=== PATIENT | female | born 1995 | race Caucasian/White ===

== ENCOUNTER 2018-07-05 14:31 | Emergency (ER) | payer SELFPAY ==
[~2018-07-05] VITALS: Ht 160 cm; Wt 44.9 kg
[~2018-07-05 14:31] MED LIST: PHEN-318 PO; SULF1TAB24 PO
[2018-07-05 14:49] VITALS: BP 120/58
--- NOTE | 2018-07-05 15:03 | PHYS DOC ---
Past Medical History Past Medical History: No Pertinent History Additional Past Medical Histor: scoliosis Past Surgical History: No Surgical History Alcohol Use: None Drug Use: None Adult General Chief Complaint Chief Complaint: BREAST PROBLEM HPI HPI 23-year-old female presents to ER with complaints of small sores on bilateral breasts with irritation around her areola. She reports she started using a new body wash a few days ago and following use of the new soap she had sores develop around her breasts. Patient denies purulent drainage from areola, fever , palpable mass on bilateral breasts, or redness streaking from her breast. Patient reports she has using triple antibiotic ointment with Band-Aids covering the small scabbed areas. Review of Systems Review of Systems Constitutional: Denies fever or chills [] Eyes: Denies redness, or eye pain [] HENT: Denies nasal congestion or sore throat/throat swelling Respiratory: Denies cough or shortness of breath [] Cardiovascular: Denies CP/tightness GI: Denies abdominal pain, nausea, vomiting, bloody stools or diarrhea [] : Denies dysuria or hematuria [] Musculoskeletal: Denies back/neck pain or joint pain [] Integument: Reports small scabbed sores on bilat. breasts- denies drainage from areolas or redness/streaking Neurologic: Denies headache, focal weakness or sensory changes [] All other systems were reviewed and found to be within normal limits, except as documented in this note. Allergies Allergies Allergies Coded Allergies Type Severity Reaction Last Updated Verified No Known Drug Allergies 07/05/18 No Physical Exam Physical Exam Constitutional: Well developed, well nourished, no acute distress, non-toxic appearance. [] HENT: Normocephalic, atraumatic, oropharynx moist, no oral exudates, nose normal. [] Eyes: Pupils equal, conjunctiva normal, no discharge. [] Neck: Normal range of motion, no tenderness, supple, no stridor. [] Cardiovascular: Heart rate regular Lungs & Thorax: Resp. equal/nonlabored. Pt has small scabbed pinpoint sores on bilat. breasts at edge of areola with rt side sore is on rt lateral side of areola and on lt the sore is lt lateral side - no palp. abscess/mass or erythema around sores. No tenderness on palp. of sores- no drainage on palp. of bilat. areolas. Bilat. breasts soft. Pt has small site on rt lateral breast where adhesive from bandaid has caused skin redness- no swelling/tenderness at this site Skin: Warm, dry, no erythema. No other areas with rash/sores on exam Extremities: No tenderness, no cyanosis, no clubbing, ROM intact, no edema. [] Neurologic: Alert and oriented X 3, normal motor function, normal sensory function, no focal deficits noted. [] Psychologic: Affect normal, judgement normal, mood normal. [] Current Patient Data Vital Signs Vital Signs Date Time Temp Pulse Resp B/P (MAP) Pulse Ox O2 Delivery O2 Flow Rate FiO2 07/05/18 14:49 98.7 72 16 120/58 (78) 98 Room Air 98.7 EKG EKG [] Radiology/Procedures Radiology/Procedures [] Course & Med Decision Making Course & Med Decision Making Patient was evaluated in the ER for complaints of small sore on bilateral breasts-denying fever or chills. Patient denies any other rash. Patient reports she had started new body soap to in-depth conversation had with patient regarding contact dermatitis and avoiding new soap. Patient advised on use of [id number] hydrocortisone or triple anabolic ointment as directed on container. Patient had no drainage or erythema at sore sites on bilateral breast. Education provided on signs and symptoms to return to ER for an discharge instructions were discussed. Nontoxic in appearance and in no distress. Will provide clinic and physician referral information for follow-up purposes as patient currently does not have primary doctor to follow-up with. Miguelito Disclaimer Miguelito Disclaimer This electronic medical record was generated, in whole or in part, using a voice recognition dictation system. Departure Departure Impression: Primary Impression: Contact dermatitis Disposition: HOME, SELF-CARE Condition: STABLE Referrals: NO PCP (PCP) Patient Instructions: Contact Dermatitis Additional Instructions: You can try jqip-ble-[id number] hydrocortisone cream as directed on container. Avoid Band-Aids as your skin was sensitive to the adhesive. Avoid the new body wash that you started using this week.. Monitor skin for worsening symptoms and with concerns follow-up with primary care physician in next 2-3 days. CLAUS GILBERT APRN Jul 05, 2018 15:03
== END 2018-07-05 15:11 | disposition home or self-care (01) ==
LOC: ER 14:31
DX: L25.9 Unspecified contact dermatitis, unspecified cause (principal)
CPT/HCPCS: 99281

== ENCOUNTER 2020-07-20 22:49 | Observation (INO) | payer MEDICAID ==
[2020-07-20] MEDS ORDERED: IV RINGERS,LACTATED 1000ML 1,000 ML IV SCH (23:00)
[2020-07-20] MEDS ORDERED: ACETAMINOPHEN 325 MG TABLET. PO PRN (23:00)
[2020-07-20 23:21] LABS: CLARITY,URINE CLOUDY; COLOR,URINE RED
[2020-07-20 23:31] LABS: BACTERIA,URINE FEW /HPF (0-FEW); RBC,URINE TNTC /HPF (0-2)
[2020-07-20 23:40] LABS: BARBITURATES NEG (NEG); BENZODIAZEPINES NEG (NEG); CANNABINOIDS NEG (NEG); COCAINE NEG (NEG); METHADONE NEG (NEG); OPIATES NEG (NEG); PHENCYCLIDINE NEG (NEG)
[2020-07-20 23:41] LABS: AMPHETAMINE/METHAMPHETAMINE NEG (NEG)
[2020-07-21] MEDS: IV RINGERS,LACTATED 1000ML 1,000 ML IV SCH ×2 (02:04→06:19)
[2020-07-21] MEDS ORDERED: BETAMET ACET&NA PHOS 30 MG/5 ML VIAL. IM SCH (03:30)
[2020-07-21] MEDS ORDERED: ONDANSETRON PF 4 MG/2 ML VIAL. IVP PRN (04:15)
--- NOTE | 2020-07-21 08:39 | PDOC1 ---
[facility] H&P Date of Admission: Date of Admission: Jul 20, 2020 at 22:49 History of Present Illness: EDC: 09/08/20 LMP: 12/03/19 25y @ 33.0 by L=9 presents to L&D with VB. The pt had a cerclage placed at 20.4 for a shortened cervix. The pt went to her boyfriends grandfathers house. When she stepped out the shower she had a large gush of blood. When she presented to the hospital she was checked by the nurse and found to be closed. Her bleeding has been light since admission and mostly old blood. She has had some ctxs on the monitor but has not felt them. She does report back pain, but has had this throughout her . She has also had some mildly elevated BPs without any s/s of preeclampsia. PMH: Denies PSH: Cerclage Meds: ASA, vaginal progesterone, scoliosis All: NKDA OBHx: G1 SH: no tob, no EtOH FH: DM, CAD Medications: Meds: Current Medications Medications (Trade) Dose Ordered Sig/Damion Route PRN Reason Start Time Stop Time Status Last Admin Dose Admin Ringer's Solution 1,000 ml @ 1,000 mls/hr Q1H IV 07/20/20 23:00 07/20/20 23:59 DC 07/21/20 01:00 Ringer's Solution 1,000 ml @ 125 mls/hr Q8H IV 07/20/20 23:00 07/21/20 06:19 Betamethasone Sodium Phosphate (Celestone Soluspan) 12 mg Q24H IM 07/21/20 03:30 07/22/20 03:31 07/21/20 03:50 Ondansetron HCl (Zofran) 4 mg PRN Q6HRS PRN IVP NAUSEA/VOMITING 07/21/20 04:15 07/21/20 08:13 Allergies: Coded Allergies: No Known Drug Allergies (Unverified , 07/05/18) Physical Exam: PE: GENERAL: No apparent distress. Alert and oriented. HEENT: Head normocephalic, atraumatic. NECK: Supple LUNGS: Clear to auscultation. HEART: RRR, S1, S2 present, pulses intact ABDOMEN: Soft, positive bowel sounds. EXTREMITIES: No cyanosis or edema. NEUROLOGIC: Normal speech, normal tone PSYCHIATRIC: Normal affect, normal mood. SKIN: No ulceration. FHT: 130s +acels/no decels/mLTV Dill[place]: 5-15 min SVE: checked by nurse since pt decline check by physician (did not want a male to check). Nurse reports that the station is low and difficult to reach around presenting part without leading to discomfort for the patient and potential stir up more bleeding. Labs: Laboratory Tests Test 07/20/20 23:13 Urine Collection Type Unknown Urine Color Red Urine Clarity Cloudy Urine pH (<5.0-8.0) Urine Specific [place] 1.025 (1.000-1.030) Urine Protein mg/dL (NEG-TRACE) Urine Glucose (UA) mg/dL (NEG) Urine Ketones (Stick) mg/dL (NEG) Urine Blood (NEG) Urine Nitrite (NEG) Urine Bilirubin (NEG) Urine Urobilinogen Dipstick mg/dL (0.2 mg/dL) Urine Leukocyte Esterase (NEG) Urine RBC Tntc /HPF (0-2) Urine WBC 5-10 /HPF (0-4) Urine Squamous Epithelial Cells Few /LPF Urine Bacteria Few /HPF (0-FEW) Urine Mucus Slight /LPF Urine Opiates Screen Neg (NEG) Urine Methadone Screen Neg (NEG) Urine Barbiturates Neg (NEG) Urine Phencyclidine Screen Neg (NEG) Urine Amphetamine/Methamphetamine Neg (NEG) Urine Benzodiazepines Screen Neg (NEG) Urine Cocaine Screen Neg (NEG) Urine Cannabinoids Screen Neg (NEG) Urine Ethyl Alcohol Neg (NEG) Assessment & Plan: A/P 25y @ 33.0 by L=9 1.) VB based on hx, FHT, and D[place] likely related to cerclage 2/2 PTC/PTL . Ddx would include infection or abruption, but less likely 2.) Shorten cervix s/p cerclage for incidental shorten cervix, on vaginal progesterone 3.) PTC/PTL does not seem to be making any cervical change. Bleeding since admission has slowed down and is mostly dark old blood. For that reason tocolytics were not started 4.) GHTN BP nml to mild, bilateral uterine artery notching noted on anatomy u/s, on ASA 5.) Fetus cat I FHT, BMTZ #1 at 0350 6.) Scoliosis 7.) GBS unk PCN not started since VIJI MOORE MD Jul 21, 2020 08:39
== END 2020-07-21 08:55 | disposition short-term general hospital (02) ==
LOC: 3 SO LND 22:49
PROVIDERS: ADMIT Obstetrics & Gynecology; ATTEND Obstetrics & Gynecology
DX: O26.873 Cervical shortening, third trimester (principal); O46.93 Antepartum hemorrhage, unspecified, third trimester; O13.9 Gestational [pregnancy-induced] hypertension without significant proteinuria, unspecified trimester; O24.913 Unspecified diabetes mellitus in pregnancy, third trimester; E11.9 Type 2 diabetes mellitus without complications; O99.891 Other specified diseases and conditions complicating pregnancy; M54.6 Pain in thoracic spine; O26.893 Other specified pregnancy related conditions, third trimester; I25.10 Atherosclerotic heart disease of native coronary artery without angina pectoris; M41.9 Scoliosis, unspecified; Z3A.33 33 weeks gestation of pregnancy; Z79.899 Other long term (current) drug therapy
CPT/HCPCS: 59025; 80307; 81001; 87086; 96361; 96372; 96374; G0378; G0379; J0702; J2405; J7120